=== PATIENT | male | born 1975 | race Two or more races ===

== ENCOUNTER 2020-08-13 03:06 | Emergency (ER) | payer MEDICAID ==
[~2020-08-13] VITALS: Ht 182.9 cm; Wt 80.0 kg
[2020-08-13 03:47] VITALS: BP 128/91
== END 2020-08-13 05:07 | disposition home or self-care (01) ==
LOC: ER 03:06
DX: K91.840 Postprocedural hemorrhage of a digestive system organ or structure following a digestive system procedure (principal); Z88.0 Allergy status to penicillin; E11.9 Type 2 diabetes mellitus without complications
CPT/HCPCS: 99281